=== PATIENT | female | born 1940 | race American Indian/Alaskan Native ===

== ENCOUNTER → 2017-02-04 | Outpatient (CLI) | payer OTHER | END | disposition home or self-care (01) | LOC: LAB.O 17:39 | PROVIDERS: ATTEND Nurse Practitioner Family | DX: E03.9 Hypothyroidism, unspecified (principal) ==

== ENCOUNTER 2017-06-11 22:00 | Emergency (ER) | payer OTHER, MEDICAID ==
[2017-06-11] MEDS ORDERED: HYDROcodone 5MG/APAP 325MG 1 EA TAB PO ONE ×2 (22:29→23:16)
--- NOTE | 2017-06-11 23:08 | RAD ---
EXAM: Clavicle,Right (accession [id number]), Shoulder,Right 2 or More Views (accession [id number]), Scapula,Right (accession [id number]), Humerus,Right (accession [id number]), Elbow,Right 2 Views (accession [id number]) CLINICAL INDICATION: 77-year-old female with pain status post fall. TECHNIQUE: Two views the RIGHT clavicle were obtained in AP projection. Two views the RIGHT humerus were obtained in AP and lateral projection. Two views of the RIGHT scapula were obtained in AP and lateral projection. Three views of the RIGHT shoulder were obtained in AP and lateral projection. Two views of the RIGHT elbow were obtained in AP and lateral projection. COMPARISON: None. FINDINGS: RIGHT shoulder: Mildly displaced and slightly impacted fracture of the RIGHT humeral head neck junction. The soft tissues appear to be within normal limits no additional fracture is identified. Patchy opacification of the RIGHT upper lobe may be secondary to scarring, consolidation, contusion for which follow-up evaluation with CT chest is recommended. RIGHT clavicle: The clavicle reveals mild degenerative change of the acromioclavicular junction otherwise no fracture or dislocation. RIGHT humerus: Incidentally noted axillary calcification may represent sequela of prior granulomatous disease. No or additional fracture or dislocation. RIGHT scapula: No fracture or dislocation. RIGHT elbow: No gross fracture or dislocation. Step-off is identified only on the AP view of the medial aspect of the distal humerus, may be secondary to patient positioning and osteophyte versus nondisplaced fracture. IMPRESSION: 1. Comminuted and slightly impacted fracture of the RIGHT humeral and neck junction. 2. Step-off is identified only on the AP view of the medial aspect of the distal humerus, may be secondary to patient positioning and osteophyte versus nondisplaced fracture. Please correlate with patient site of pain. Electronically signed by: Leticia Ndiaye MD 06/11/2017 11:07 PM CDT Workstation: [id number]
--- NOTE | 2017-06-11 23:08 | RAD ---
EXAM: Clavicle,Right (accession [id number]), Shoulder,Right 2 or More Views (accession [id number]), Scapula,Right (accession [id number]), Humerus,Right (accession [id number]), Elbow,Right 2 Views (accession [id number]) CLINICAL INDICATION: 77-year-old female with pain status post fall. TECHNIQUE: Two views the RIGHT clavicle were obtained in AP projection. Two views the RIGHT humerus were obtained in AP and lateral projection. Two views of the RIGHT scapula were obtained in AP and lateral projection. Three views of the RIGHT shoulder were obtained in AP and lateral projection. Two views of the RIGHT elbow were obtained in AP and lateral projection. COMPARISON: None. FINDINGS: RIGHT shoulder: Mildly displaced and slightly impacted fracture of the RIGHT humeral head neck junction. The soft tissues appear to be within normal limits no additional fracture is identified. Patchy opacification of the RIGHT upper lobe may be secondary to scarring, consolidation, contusion for which follow-up evaluation with CT chest is recommended. RIGHT clavicle: The clavicle reveals mild degenerative change of the acromioclavicular junction otherwise no fracture or dislocation. RIGHT humerus: Incidentally noted axillary calcification may represent sequela of prior granulomatous disease. No or additional fracture or dislocation. RIGHT scapula: No fracture or dislocation. RIGHT elbow: No gross fracture or dislocation. Step-off is identified only on the AP view of the medial aspect of the distal humerus, may be secondary to patient positioning and osteophyte versus nondisplaced fracture. IMPRESSION: 1. Comminuted and slightly impacted fracture of the RIGHT humeral and neck junction. 2. Step-off is identified only on the AP view of the medial aspect of the distal humerus, may be secondary to patient positioning and osteophyte versus nondisplaced fracture. Please correlate with patient site of pain. Electronically signed by: Leticia Ndiaye MD 06/11/2017 11:07 PM CDT Workstation: [id number]
--- NOTE | 2017-06-11 23:08 | RAD ---
EXAM: Clavicle,Right (accession [id number]), Shoulder,Right 2 or More Views (accession [id number]), Scapula,Right (accession [id number]), Humerus,Right (accession [id number]), Elbow,Right 2 Views (accession [id number]) CLINICAL INDICATION: 77-year-old female with pain status post fall. TECHNIQUE: Two views the RIGHT clavicle were obtained in AP projection. Two views the RIGHT humerus were obtained in AP and lateral projection. Two views of the RIGHT scapula were obtained in AP and lateral projection. Three views of the RIGHT shoulder were obtained in AP and lateral projection. Two views of the RIGHT elbow were obtained in AP and lateral projection. COMPARISON: None. FINDINGS: RIGHT shoulder: Mildly displaced and slightly impacted fracture of the RIGHT humeral head neck junction. The soft tissues appear to be within normal limits no additional fracture is identified. Patchy opacification of the RIGHT upper lobe may be secondary to scarring, consolidation, contusion for which follow-up evaluation with CT chest is recommended. RIGHT clavicle: The clavicle reveals mild degenerative change of the acromioclavicular junction otherwise no fracture or dislocation. RIGHT humerus: Incidentally noted axillary calcification may represent sequela of prior granulomatous disease. No or additional fracture or dislocation. RIGHT scapula: No fracture or dislocation. RIGHT elbow: No gross fracture or dislocation. Step-off is identified only on the AP view of the medial aspect of the distal humerus, may be secondary to patient positioning and osteophyte versus nondisplaced fracture. IMPRESSION: 1. Comminuted and slightly impacted fracture of the RIGHT humeral and neck junction. 2. Step-off is identified only on the AP view of the medial aspect of the distal humerus, may be secondary to patient positioning and osteophyte versus nondisplaced fracture. Please correlate with patient site of pain. Electronically signed by: Leticia Ndiaye MD 06/11/2017 11:07 PM CDT Workstation: [id number]
--- NOTE | 2017-06-11 23:08 | RAD ---
EXAM: Clavicle,Right (accession [id number]), Shoulder,Right 2 or More Views (accession [id number]), Scapula,Right (accession [id number]), Humerus,Right (accession [id number]), Elbow,Right 2 Views (accession [id number]) CLINICAL INDICATION: 77-year-old female with pain status post fall. TECHNIQUE: Two views the RIGHT clavicle were obtained in AP projection. Two views the RIGHT humerus were obtained in AP and lateral projection. Two views of the RIGHT scapula were obtained in AP and lateral projection. Three views of the RIGHT shoulder were obtained in AP and lateral projection. Two views of the RIGHT elbow were obtained in AP and lateral projection. COMPARISON: None. FINDINGS: RIGHT shoulder: Mildly displaced and slightly impacted fracture of the RIGHT humeral head neck junction. The soft tissues appear to be within normal limits no additional fracture is identified. Patchy opacification of the RIGHT upper lobe may be secondary to scarring, consolidation, contusion for which follow-up evaluation with CT chest is recommended. RIGHT clavicle: The clavicle reveals mild degenerative change of the acromioclavicular junction otherwise no fracture or dislocation. RIGHT humerus: Incidentally noted axillary calcification may represent sequela of prior granulomatous disease. No or additional fracture or dislocation. RIGHT scapula: No fracture or dislocation. RIGHT elbow: No gross fracture or dislocation. Step-off is identified only on the AP view of the medial aspect of the distal humerus, may be secondary to patient positioning and osteophyte versus nondisplaced fracture. IMPRESSION: 1. Comminuted and slightly impacted fracture of the RIGHT humeral and neck junction. 2. Step-off is identified only on the AP view of the medial aspect of the distal humerus, may be secondary to patient positioning and osteophyte versus nondisplaced fracture. Please correlate with patient site of pain. Electronically signed by: Leticia Ndiaye MD 06/11/2017 11:07 PM CDT Workstation: [id number]
--- NOTE | 2017-06-11 23:08 | RAD ---
EXAM: Clavicle,Right (accession [id number]), Shoulder,Right 2 or More Views (accession [id number]), Scapula,Right (accession [id number]), Humerus,Right (accession [id number]), Elbow,Right 2 Views (accession [id number]) CLINICAL INDICATION: 77-year-old female with pain status post fall. TECHNIQUE: Two views the RIGHT clavicle were obtained in AP projection. Two views the RIGHT humerus were obtained in AP and lateral projection. Two views of the RIGHT scapula were obtained in AP and lateral projection. Three views of the RIGHT shoulder were obtained in AP and lateral projection. Two views of the RIGHT elbow were obtained in AP and lateral projection. COMPARISON: None. FINDINGS: RIGHT shoulder: Mildly displaced and slightly impacted fracture of the RIGHT humeral head neck junction. The soft tissues appear to be within normal limits no additional fracture is identified. Patchy opacification of the RIGHT upper lobe may be secondary to scarring, consolidation, contusion for which follow-up evaluation with CT chest is recommended. RIGHT clavicle: The clavicle reveals mild degenerative change of the acromioclavicular junction otherwise no fracture or dislocation. RIGHT humerus: Incidentally noted axillary calcification may represent sequela of prior granulomatous disease. No or additional fracture or dislocation. RIGHT scapula: No fracture or dislocation. RIGHT elbow: No gross fracture or dislocation. Step-off is identified only on the AP view of the medial aspect of the distal humerus, may be secondary to patient positioning and osteophyte versus nondisplaced fracture. IMPRESSION: 1. Comminuted and slightly impacted fracture of the RIGHT humeral and neck junction. 2. Step-off is identified only on the AP view of the medial aspect of the distal humerus, may be secondary to patient positioning and osteophyte versus nondisplaced fracture. Please correlate with patient site of pain. Electronically signed by: Leticia Ndiaye MD 06/11/2017 11:07 PM CDT Workstation: [id number]
--- NOTE | 2017-06-11 23:12 | ED.PDOC ---
History of Present Illness - General Chief Complaint: Upper Extremity Injury Stated Complaint: Right arm injury Time Seen by Provider: 06/11/17 22:02 Source: patient Exam Limitations: no limitations - History of Present Illness Initial Comments: the patient is a 77-year-old female that was getting in her car when she fell backwardsand tried to catch herself with her right arm. She felt a pop up towards her shoulder. She is having severe pain surrounding the shoulder and extending down her arm. Sensation is preserved and capillary refill is within normal limits. Radial pulses strong. She has tenderness to palpation over the entirety of the shoulder. I see no definite deformity. There is some tenderness over the right elbow as well. No other injuries. No lacerations. Timing/Duration: momentarily Severity: moderate Improving Factors: immobilization Worsening Factors: movement Associated Symptoms: denies symptoms Allergies/Adverse Reactions: Allergies Penicillins Allergy (Verified 07/11/15 22:30) Flu Virus Vaccine Adverse Reaction (Verified 06/11/17 22:15) Home Medications: Ambulatory Orders Acetaminophen W/ Codeine [Tylenol W/ CODEINE #3] 1 - 2 ea PO Q4H PRN #20 Ciprofloxacin [Cipro] 500 mg PO BID #20 tab 07/11/15 Sulfa/Trimeth 800/160 (Ds) Tab [Bactrim DS Tab] 1 ea PO BID #20 tab 07/11/15 Xsxjtlbhmgsuz-Luwj-Zkogdhwhkx [Fioricet] 1 ea PO Q8H PRN #60 tab 06/11/17 Review of Systems - Review of Systems Constitutional: States: no symptoms reported EENTM: States: no symptoms reported Respiratory: States: no symptoms reported Cardiology: States: no symptoms reported Gastrointestinal/Abdominal: States: no symptoms reported Genitourinary: States: no symptoms reported Musculoskeletal: States: see HPI Skin: States: no symptoms reported Neurological: States: no symptoms reported All other Systems: No Change from Baseline Past Medical History (General) - Patient Medical History Hx Seizures: No Hx Stroke: No Hx Dementia: No Hx Asthma: No Hx of COPD: Yes Hx Cardiac Disorders: No Hx Congestive Heart Failure: No Hx Pacemaker: No Hx Hypertension: No Hx Thyroid Disease: Yes Hx Diabetes: No Hx Gastroesophageal Reflux: Yes Hx Renal Disease: No Hx Cancer: No Hx of HIV: No Hx Hepatitis C: No Hx MRSA: No Surgical History: tonsillectomy, Hysterectomy - Vaccination History Hx Tetanus, Diphtheria Vaccination: Yes Hx Influenza Vaccination: No Hx Pneumococcal Vaccination: Yes Immunizations Up to Date: Yes - Social History Hx Tobacco Use: No Hx Alcohol Use: No - Activities of Daily Living Hospice Agency (if applicable):: None - Female History Patient is a Female of Child Bearing Age (10 -59 yrs old): No Patient : No Family Medical History - Family History Mother Family History: No Known Living Status: Physical Exam - Physical Exam General Appearance: Alert Eye Exam: bilateral normal Ears, Nose, Throat: normal ENT inspection, normal pharynx Neck: full range of motion, supple Respiratory: lungs clear, normal breath sounds, no respiratory distress, no accessory muscle use Cardiovascular/Chest: normal peripheral pulses, regular rate, rhythm, no edema Peripheral Pulses: radial,right: 2+, radial,left: 2+ Rectal Exam: deferred Back Exam: other - ight scapular tenderness to palpation but no deformity Extremity: no pedal edema, normal capillary refill, other - active and passive range of motion of the right upper extremity are limited due to pain. No obvious gross deformity. Neurologic: no motor/sensory deficits, alert, normal mood/affect, oriented x 3 Skin Exam: normal color Comments: Vital Signs - 24 hr 06/11/17 06/11/17 22:14 22:15 Temperature 98 F Pulse Rate [ 68 68 Left radial] Respiratory 18 18 Rate Blood Pressure 159/76 [Left Arm] O2 Sat by Pulse 94 L Oximetry Progress - Progress Progress: 06/11/17 23:12 the patient is a 77-year-old female sustaining a proximal right humerus fracture after a fall that was accidental. The patient is given hydrocodone tonight. She is given a prescription for Fioricet. She is being placed in a shoulder immobilizer. I recommend that she follow-up with orthopedics later this coming week for reevaluation, and likely re-x-ray of the elbow to make sure there is not a small nondisplaced fracture present. She appears to be neurovascularly intact at this time. ER warnings were given. She continues ibuprofen or Aleve additionally as needed for pain control. 06/11/17 23:18 - Results/Orders Results/Orders: x-rays of the right scapula, shoulder, humerus, elbow and clavicle show a minimally displaced fracture of the right proximal humerus and a questionable nondisplaced fracture of the distal humerus at the elbow. Departure - Departure Clinical Impression: Proximal humeral fracture Qualifiers: Encounter type: initial encounter Fracture type: closed Fracture morphology: unspecified fracture morphology Laterality: right Qualified Code(s): S42.201A - Unspecified fracture of upper end of right humerus, initial encounter for closed fracture Disposition: Discharge to Home or Self Care Condition: Fair Departure Forms: ED Discharge - Pt. Copy, Patient Portal Self Enrollment Instructions: DI for Arm Pain Diet: regular diet Activity: no pushing/pulling with affected limb Referrals: SONAL GOLD IV ROLL PANNER [Primary Care Provider] - 1-2 Weeks Prescriptions: Scpkdprxvsaxs-Qlzk-Dpampynynl [Fioricet] 1 ea PO Q8H PRN #60 tab PRN Reason: Pain Home Medications: Ambulatory Orders Acetaminophen W/ Codeine [Tylenol W/ CODEINE #3] 1 - 2 ea PO Q4H PRN #20 Ciprofloxacin [Cipro] 500 mg PO BID #20 tab 07/11/15 Sulfa/Trimeth 800/160 (Ds) Tab [Bactrim DS Tab] 1 ea PO BID #20 tab 07/11/15 Ujsiuotlvqpqb-Kfsn-Lknpyyjxfl [Fioricet] 1 ea PO Q8H PRN #60 tab 06/11/17 Additional Instructions: the patient is a 77-year-old female sustaining a proximal right humerus fracture after a fall that was accidental. The patient is given hydrocodone tonight. She is given a prescription for Fioricet. She is being placed in a shoulder immobilizer. I recommend that she follow-up with orthopedics later this coming week for reevaluation, and likely re-x-ray of the elbow to make sure there is not a small nondisplaced fracture present. She appears to be neurovascularly intact at this time. ER warnings were given. She continues ibuprofen or Aleve additionally as needed for pain control.
[2017-06-11 23:14] VITALS: O2SAT 92
[2017-06-11 23:29] VITALS: BP 138/72; TEMP 98.2
== END 2017-06-11 23:30 | disposition home or self-care (01) ==
LOC: ER 22:00
DX: S42.201A Unspecified fracture of upper end of right humerus, initial encounter for closed fracture (principal); K21.9 Gastro-esophageal reflux disease without esophagitis; E07.9 Disorder of thyroid, unspecified; J44.9 Chronic obstructive pulmonary disease, unspecified; Z88.0 Allergy status to penicillin; Z88.7 Allergy status to serum and vaccine; Z79.899 Other long term (current) drug therapy; W19.XXXA Unspecified fall, initial encounter; Y92.9 Unspecified place or not applicable

== ENCOUNTER → 2017-07-01 | Outpatient (CLI) | payer OTHER, MEDICAID ==
--- NOTE | 2017-07-03 16:43 | RAD ---
Examination: XR SHOULDER 2 OR MORE VIEWS dated 07/01/2017 8:32 AM CDT History: PAIN IN RIGHT SHOULDER Comparison: 06/11/2017 Technique: Two views of the right proximal humerus FINDINGS AND IMPRESSION: Mildly displaced fracture of the surgical neck, right proximal humerus in unchanged alignment. Fracture line remains visible without significant callus formation. Electronically signed by: Crow Martins MD 07/03/2017 4:42 PM CDT
--- NOTE | 2017-07-03 16:44 | RAD ---
Examination: XR HUMERUS dated 07/01/2017 8:32 AM CDT History: PAIN IN RIGHT ARM Comparison: 06/11/2017 Technique: Two views of the right humerus FINDINGS AND IMPRESSION: Mildly displaced surgical neck fracture of the right proximal humerus in unchanged alignment. Fracture line remains visible without significant callus formation. Electronically signed by: Crow Martins MD 07/03/2017 4:43 PM CDT
== END | disposition home or self-care (01) ==
LOC: RAD 08:32
PROVIDERS: ATTEND Orthopaedic Surgery
DX: M25.511 Pain in right shoulder (principal); M79.601 Pain in right arm

== ENCOUNTER → 2017-07-12 | Outpatient (CLI) | payer OTHER, MEDICAID ==
--- NOTE | 2017-07-12 11:47 | RAD ---
EXAM DESCRIPTION: Right shoulder, 3 radiographs CLINICAL HISTORY: CLOSED FX OF SURGICAL NECK OF HUMERUS FINDINGS/ IMPRESSION: COMPARISON: 07/01/2017 Fracture of the right proximal humerus at the surgical neck. Mild surrounding callus. No solid osseous fusion. Similar degree of impaction No fracture of the clavicle or scapula Electronically signed by: Asa St MD 07/12/2017 11:45 AM CDT
--- NOTE | 2017-07-12 11:47 | RAD ---
EXAM DESCRIPTION: Humerus,Right CLINICAL HISTORY: CLOSED FX OF SURGICAL NECK OF HUMERUS COMPARISON: July 01, 2017 IMPRESSION: 2 views of the right humerus again demonstrate a mildly displaced, impacted right shoulder involving the surgical neck of the proximal right humerus. There is more indistinctness of the fracture margins and increasing periosteal reaction consistent with partial interval healing. Fracture line persists consistent with incomplete fusion at this time. Soft tissue calcification lateral to the right chest are seen. Today's exam shows more prominent interstitial infiltrate and masslike density in the right lung apex concerning for pneumonia versus neoplastic process. Further evaluation with CT of the chest is recommended as described on prior imaging reports. Electronically signed by: Yunior Carolina MD 07/12/2017 11:45 AM CDT
--- NOTE | 2017-07-12 14:05 | RAD ---
Right elbow three views INDICATION: Elbow pain IMPRESSION: Bones are osteopenic. There is an enthesophyte at the medial epicondyle. This may relate to remote trauma or chronic medial epicondylitis. No acute fracture or dislocation. No large effusion or hemarthrosis noted. Electronically signed by: Tera Astorga MD 07/12/2017 2:04 PM CDT
== END | disposition home or self-care (01) ==
LOC: RAD 08:05
PROVIDERS: ATTEND Orthopaedic Surgery
DX: S42.291D Other displaced fracture of upper end of right humerus, subsequent encounter for fracture with routine healing (principal); M25.521 Pain in right elbow; X58.XXXA Exposure to other specified factors, initial encounter

== ENCOUNTER → 2017-07-26 | Outpatient (CLI) | payer OTHER, MEDICAID ==
--- NOTE | 2017-07-26 16:08 | RAD ---
EXAM DESCRIPTION: Shoulder,Right 2 or More Views CLINICAL HISTORY: CLOSED FRACTURE OF HUMERUS COMPARISON: July 12, 2017 IMPRESSION: 3 views of the right shoulder again demonstrate fracture of the right proximal humerus at the surgical neck. Mild surrounding callus not significantly changed from previous. No solid osseous fusion. Similar degree of impaction. No glenohumeral joint dislocation. No fracture of the clavicle or scapula. The osseous structures are diffusely osteopenic. Chronic changes to the right chest with apical pleural thickening again seen. Electronically signed by: Yunior Carolina MD 07/26/2017 4:07 PM CDT
== END | disposition home or self-care (01) ==
LOC: RAD 08:32
PROVIDERS: ATTEND Orthopaedic Surgery
DX: S42.301A Unspecified fracture of shaft of humerus, right arm, initial encounter for closed fracture (principal)

== ENCOUNTER → 2017-08-09 | Outpatient (CLI) | payer OTHER, MEDICAID ==
--- NOTE | 2017-08-09 14:44 | RAD ---
EXAM DESCRIPTION: Shoulder,Right 2 or More Views CLINICAL HISTORY: CLOSED FX OF HUMERUS COMPARISON: July 26, 2017, July 12, 2017, July 01, 2017 TECHNIQUE: Two views of the right shoulder. FINDINGS: An impacted fracture of the right proximal humerus at the head neck junction is present with persistent lucency and some progressive maturation of callus formation at the margins of the fracture line. Or significant progression of callus in comparison to more remote studies is evident. The alignment is stable. Osteopenia with intact clavicle and scapula is noted. There is chronic inflammatory changes and/or pleural thickening involving the right pulmonary apex and upper outer chest wall. This is unchanged from prior study. IMPRESSION: 1. Slow progressive maturation of callus formation at the proximal humeral fracture site with stable alignment. 2. Chronic pleural thickening and inflammatory changes in the right upper lung field, little changed. Electronically signed by: Asa Saha MD 08/09/2017 2:42 PM [facility]
== END | disposition home or self-care (01) ==
LOC: RAD 07:56
PROVIDERS: ATTEND Orthopaedic Surgery
DX: S42.301A Unspecified fracture of shaft of humerus, right arm, initial encounter for closed fracture (principal); X58.XXXA Exposure to other specified factors, initial encounter

== ENCOUNTER → 2017-08-23 | Outpatient (CLI) | payer OTHER, MEDICAID ==
--- NOTE | 2017-08-23 09:01 | RAD ---
EXAM DESCRIPTION: Shoulder,Right 2 or More Views CLINICAL HISTORY: HUMERUS FX COMPARISON: 09 August 2017 TECHNIQUE: 3 views right FINDINGS: An impacted fracture of the proximal radius is observed. Callus formation is observed at the fracture site. Alignment of the fracture is unchanged from the prior exam. Osteopenia is observed in the shoulder. Calcifications are observed along the right lateral chest wall. This remains unchanged the prior exam. No new fracturing is detected. IMPRESSION: A healing fracture the proximal right humerus is again noted. Electronically signed by: Franklyn Mckenzie MD 08/23/2017 9:00 AM [facility]
== END | disposition home or self-care (01) ==
LOC: RAD 08:02
PROVIDERS: ATTEND Orthopaedic Surgery
DX: S42.301A Unspecified fracture of shaft of humerus, right arm, initial encounter for closed fracture (principal)

== ENCOUNTER → 2017-09-06 | Outpatient (CLI) | payer OTHER, MEDICAID ==
--- NOTE | 2017-09-07 07:43 | RAD ---
EXAM DESCRIPTION: Shoulder,Right 2 or More Views CLINICAL HISTORY: 77 years Female, CLOSED FX OF HUMERUS COMPARISON: August 23, 2017 FINDINGS: 3 views of the right shoulder show an impacted, partially united and nondisplaced right humeral neck fracture, not significantly changed from August 23. The bones appear demineralized. No acute fracture or malalignment is identified. There is some soft tissue calcification in the right axilla, stable and probably representing one or more calcified lymph nodes. IMPRESSION: Impacted, nondisplaced and partially nonunited right humeral neck fracture, unchanged from August 23, 2017. No new abnormality. Generalized bony demineralization. Electronically signed by: Collin Frank MD 09/07/2017 7:42 AM [facility]
== END ==
LOC: RAD 08:00
PROVIDERS: ATTEND Orthopaedic Surgery
DX: S42.301D Unspecified fracture of shaft of humerus, right arm, subsequent encounter for fracture with routine healing (principal)

== ENCOUNTER 2018-02-26 20:38 | Inpatient (IN) | payer MEDICAID, OTHER ==
[2018-02-26] MEDS ORDERED: IPRATROPIUM/ALBUTEROL 3 ML VIAL NEB ONE (20:53)
--- NOTE | 2018-02-26 21:13 | ED.PDOC ---
History of Present Illness - General Chief Complaint: Chest Pain/OK Stated Complaint: Fall, chest and back pain Time Seen by Provider: 02/26/18 21:11 Source: patient Exam Limitations: no limitations - History of Present Illness Initial Comments: the patient is a 78-year-old female brought in by EMS secondary to recurrent falls. She has fallen 3 times in his many days. She fell backwards today and is having some low back pain diffusely. No incontinence. She is moving her extremities well. She does however have a low-grade fever and is mildly hypoxic at rest. She does have a history of COPD but has not had to do any breathing treatments or wearing the oxygen for several years. After the first fall she has had some chest pain with movement. No real chest pain at rest or aerobic exertion. She has not passed out. She reports that her legs didn't give way on her the first time. No palpitations. She has had a productive cough. Timing/Duration: unsure Severity: moderate Improving Factors: nothing Worsening Factors: nothing Associated Symptoms: denies symptoms Allergies/Adverse Reactions: Allergies Penicillins Allergy (Verified 02/26/18 21:01) Flu Virus Vaccine Adverse Reaction (Verified 02/26/18 21:01) Home Medications: Ambulatory Orders Acetaminophen W/ Codeine [Tylenol W/ CODEINE #3] 1 - 2 ea PO Q4H PRN #20 Msxodjkuzelbr-Pczb-Peyoydvswi [Fioricet] 1 ea PO Q8H PRN #60 tab 06/11/17 Review of Systems - Review of Systems Constitutional: States: fever, malaise, weakness EENTM: States: no symptoms reported Respiratory: States: cough, short of breath Cardiology: States: chest pain - hest wall pain Gastrointestinal/Abdominal: States: no symptoms reported Genitourinary: States: no symptoms reported Musculoskeletal: States: no symptoms reported Skin: States: no symptoms reported Neurological: States: no symptoms reported Endocrine: States: no symptoms reported All other Systems: No Change from Baseline Past Medical History (General) - Patient Medical History Hx Seizures: No Hx Stroke: No Hx Dementia: No Hx Asthma: No Hx of COPD: Yes Hx Cardiac Disorders: No Hx Congestive Heart Failure: No Hx Pacemaker: No Hx Hypertension: No Hx Thyroid Disease: Yes Hx Diabetes: No Hx Gastroesophageal Reflux: Yes Hx Renal Disease: No Hx Cancer: No Hx of HIV: No Hx Hepatitis C: No Hx MRSA: No - Vaccination History Hx Tetanus, Diphtheria Vaccination: Yes Hx Influenza Vaccination: No Hx Pneumococcal Vaccination: Yes - Social History Hx Tobacco Use: No Hx Alcohol Use: No - Female History Patient : No Family Medical History - Family History Mother Family History: No Known Living Status: Physical Exam - Physical Exam General Appearance: Alert, Frail Eye Exam: bilateral normal Ears, Nose, Throat: hearing grossly normal, normal ENT inspection, normal pharynx Neck: full range of motion, supple Respiratory: no respiratory distress, accessory muscle use, rhonchi, wheezing, other - hest wall anteriorly is uncomfortable to palpation. Cardiovascular/Chest: normal peripheral pulses, no edema, other - orderline tachycardia. Peripheral Pulses: radial,right: 2+, radial,left: 2+, dorsalis pedis,right: 2+, dorsalis pedis,left: 2+ Gastrointestinal/Abdominal: non tender, soft Rectal Exam: deferred Back Exam: other - he patient does have diffuse discomfort palpation over her low back. No definite step-offs. No bruising as of yet. 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 It does appear that she has been getting hypoxic likely from a scattered pneumonia, primarily focused in the right upper lobe. She is no doubt having a COPD exacerbation given her pulmonary exam. She does require oxygen. Blood culture has been performed. Rocephin and azithromycin have been started. She has additionally received a small dose of IV Solu-Medrol. She is also received a dose of hydrocodone for the low back pain from the fall. X-ray of the lumbar spine shows no definitive evidence of any acute pathology though she does have significant chronic pathology in that area. The patient does have a mildly elevated bilirubin which is likely a chronic finding. She also has mild hypokalemia and has received a dose of potassium. She is mildly dehydrated and is receiving a 500 cc normal saline bolus. She may yet require some physical therapy before she is fully able to resume her ADLs as she was barely able to perform them before these falls. She also may require longer term oxygen therapy and scheduled nebulizer treatments when she goes home. - Results/Orders Results/Orders: Laboratory Tests 02/26/18 02/26/18 02/26/18 20:53 20:53 20:53 WBC 12.4 H RBC 3.93 L Hgb 12.1 Hct 35.8 L MCV 91.0 MCH 30.7 MCHC 33.7 RDW 13.6 Plt Count 234 MPV 8.0 Absolute Neuts (auto) 11.40 H Absolute Lymphs (auto) 0.30 L Absolute Monos (auto) 0.70 Absolute Eos (auto) 0.00 Absolute Basos (auto) 0.00 Neutrophils % 91.6 H Lymphocytes % 2.3 L Monocytes % 5.9 Eosinophils % 0.1 L Basophils % 0.1 PT 14.9 H INR 1.290 PTT (SP) 26.5 Sodium 133 L Potassium 3.0 L Chloride 97 L Carbon Dioxide 25 Anion Gap 14.0 BUN 19 H Creatinine 0.59 L BUN/Creatinine Ratio 32.2 H Random Glucose 156 H Serum Osmolality 271.8 L Lactic Acid Calcium 8.2 L Total Bilirubin 2.3 H* AST 19 ALT 15 Alkaline Phosphatase 73 Creatine Kinase 29 CK-MB (CK-2) 2.1 CK-MB (CK-2) % Not Reportable Troponin I 0.03 B-Natriuretic Peptide 219.0 H* Serum Total Protein 6.3 L Albumin 2.4 L Globulin 3.9 H Albumin/Globulin Ratio 0.6 L 02/26/18 20:53 WBC RBC Hgb Hct MCV MCH MCHC RDW Plt Count MPV Absolute Neuts (auto) Absolute Lymphs (auto) Absolute Monos (auto) Absolute Eos (auto) Absolute Basos (auto) Neutrophils % Lymphocytes % Monocytes % Eosinophils % Basophils % PT INR PTT (SP) Sodium Potassium Chloride Carbon Dioxide Anion Gap BUN Creatinine BUN/Creatinine Ratio Random Glucose Serum Osmolality Lactic Acid 1.4 Calcium Total Bilirubin AST ALT Alkaline Phosphatase Creatine Kinase CK-MB (CK-2) CK-MB (CK-2) % Troponin I B-Natriuretic Peptide Serum Total Protein Albumin Globulin Albumin/Globulin Ratio EKG shows mild sinus tachycardia at 107 bpm.normal axis. No acute ST segment changes worrisome for ischemia. Normal corrected QT interval. Chest x-ray shows scattered pulmonary infiltrates with the largest being in the right upper lobe. Departure - Departure Clinical Impression: Hypokalemia, Hypoxia, COPD with acute exacerbation Pneumonia Qualifiers: Pneumonia type: due to unspecified organism Laterality: bilateral Lung location : upper lobe of lung Qualified Code(s): J18.9 - Pneumonia, unspecified organism Fall at home Qualifiers: Encounter type: initial encounter Qualified Code(s): W19.XXXA - Unspecified fall, initial encounter; Y92.099 - Unspecified place in other non-institutional residence as the place of occurrence of the external cause Disposition: Admit Patient Condition: Serious Referrals: SONAL GOLD IV, [facility] [Primary Care Provider] - 1-2 Weeks Home Medications: Ambulatory Orders Acetaminophen W/ Codeine [Tylenol W/ CODEINE #3] 1 - 2 ea PO Q4H PRN #20 Tporxlgbrtfrc-Wbyq-Flhdtvvbav [Fioricet] 1 ea PO Q8H PRN #60 tab 06/11/17 Decision To Admit - Decistion To Admit Decision to Admit Reason: Medical Nature Decision to Admit Date: 02/26/18 Decision to Admit Time: 22:36
--- NOTE | 2018-02-26 21:43 | RAD ---
EXAM DESCRIPTION: Chest,1 View CLINICAL HISTORY: sob, recurrent falls, cp after fall COMPARISON: None. FINDINGS: Cardiac silhouette is within normal limits. There is consolidation in the right upper lung, right lung base and left lung base and to a lesser extent left upper lung. IMPRESSION: Scattered consolidations. Electronically signed by: Josr Taylor 02/26/2018 9:41 PM CDT
--- NOTE | 2018-02-26 21:50 | RAD ---
EXAM DESCRIPTION: Lumbar Spine 3 Views CLINICAL HISTORY: pain after fall COMPARISON: None FINDINGS: 3 view(s) submitted. There are degenerative changes. There is grade 1 anterolisthesis of L4 on L5. Moderate L5-S1 disc height loss. There is slight loss of height of T12, acuity indeterminate. Moderate dilatation of loops of gas-filled bowel are present. No definite transition point is seen. No fracture or dislocation is identified. Bone marrow attenuation is unremarkable. No radiopaque foreign body is identified. IMPRESSION: No acute fracture or dislocation. Electronically signed by: Josr Taylor 02/26/2018 9:48 PM CDT
[2018-02-26] MEDS ORDERED: POTASSIUM CHLORIDE ELIXIR 20 MEQ/15 ML UD PO ONE (21:56)
[2018-02-26] MEDS ORDERED: cefTRIAXone SODIUM 1 GM in SODIUM CHL 0.9% 50ML MIN-BAG+ 50 ML IVPB ONE (21:58)
[2018-02-26] MEDS ORDERED: AZITHROMYCIN IV 500 MG in SODIUM CHLORIDE 0.9% 250ML 250 ML IVPB ONE (21:58)
[2018-02-26] MEDS ORDERED: methylPREDNISolone SODIUM SUC 125 MG/2 ML VIAL IV ONE (21:59)
[2018-02-26] MEDS ORDERED: HYDROcodone 5MG/APAP 325MG 1 EA TAB PO ONE (21:59)
[2018-02-26] MEDS ORDERED: SODIUM CHL 0.9% 50ML MIN-BAG+ 50 ML IVPB ONE (22:15)
[2018-02-26] MEDS ORDERED: cefTRIAXone SODIUM 1 GM VIAL ONE (22:15)
[2018-02-26] MEDS ORDERED: SODIUM CHLORIDE 0.9% 1000ML 500 ML IVS ONE (22:28)
[2018-02-26] MEDS ORDERED: SODIUM CHLORIDE 0.9% 250ML 250 ML ONE (23:18)
[2018-02-26] MEDS ORDERED: AZITHROMYCIN IV 500 MG VIAL IVPB ONE (23:18)
--- NOTE | 2018-02-27 00:54 | HP ---
SUPERVISING PHYSICIAN: Asa Santoyo MD CHIEF COMPLAINT: Fall with chest and back pain. HISTORY OF PRESENT ILLNESS: Ms. Pinon is an 78 year-old female patient who presented to the Emergency Room via EMS after she had multiple falls throughout the day. She said had fallen at least three times throughout the day. She had fallen backwards and was having some diffuse lower back pain. On presentation to the Emergency Department, she was moving all extremities but was showing a low grade fever and was mildly hypoxic at rest with Sv02 showing initially in the high 80s. She has a longstanding history of chronic obstructive pulmonary disease but has not had any significant treatment over the years and has not been utilizing any breathing treatments or wearing oxygen. She notes that after the first fall this morning she had some chest pain but no chest pain at rest or activities and the pain was reproducible. She notes that she did not actually pass out but her legs just simply gave way on her. She has also noted over the last several days she has developed a productive cough. Initially, her vital signs showed she was febrile with a temperature of 100.5. Her laboratory studies indicated she had a leukocytosis with a left shift and her chemistries showed she was low on sodium and potassium with elevated BUN at 19 but normal lactic acid at 1.4. Her liver enzymes were all normal except for her total bilirubin which was 2.3. Cardiac enzymes showed a troponin 0.03 with a BNP of 219. An X- ray of her chest was completed and per radiology interpretation of single-view chest showed scattered consolidation in the right upper lung and lower lung base null with some noted in the left lung base. Lumbar spine x-ray was also completed given that she was having some back pain which appears to be chronic and it was noted per radiology interpretation, no acute fractures or dislocation. Given that she was presenting with a fever and consolidations noted on x-ray, she was started on treatment for pneumonia, community acquired, in the Emergency Room . Blood cultures were completed prior to antibiotic administrations which included Rocephin and azithromycin. She is now going to be admitted for further evaluation and treatment of community acquired pneumonia with an exacerbation of chronic obstructive pulmonary disease. PAST MEDICAL HISTORY: 1. Chronic obstructive pulmonary disease but no currently under any treatment. 2. Hypothyroidism not on any supplementation. 3. Gastroesophageal reflux disease. 4. Fracture of her right humerus in May 2017. PAST SURGICAL HISTORY: 1. Hysterectomy. 2. Bilateral breast surgery for fibroid tumors. 3. Tonsillectomy and adenoidectomy. 4. Appendectomy. 5. Cholecystectomy. CURRENT MEDICATIONS: 1. Fioricet 1 tablet every 8 hours as needed. 2. Tylenol No. 3, one or two every 4 hours as needed. ALLERGIES: COCONUT, PENICILLIN, FLU VIRUS VACCINE. FAMILY HISTORY: Significant for emphysema cardiovascular disease and hypertension. SOCIAL HISTORY: The patient has recently moved to [place] within the last four years from [place], [place]. 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 She did have a long history of smoking, well over 45 years, but quit in 1999 and she has never drank alcohol. She is and lives with a roommate. REVIEW OF SYSTEMS: CONSTITUTIONAL: Noted fever, malaise, general weakness. HEENT: No reported nasal congestion, earache, sore throat, headaches. CARDIOVASCULAR: Chest pain with palpable chest wall pain after fall. No palpitations or syncopal episodes. GASTROINTESTINAL: No abdominal pain, constipation diarrhea, nausea or vomiting. GENITOURINARY: Denies any dysuria, hematuria, polyuria or other urinary symptoms. NEUROLOGICAL: Denies ataxia, seizures or other neurological deficits. PHYSICAL EXAMINATION: VITAL SIGNS: Temperature in the Emergency Department initially was 100.5. Heart rate 107 with blood pressure 121/62, respirations 24, saturation 92% on nasal cannula at 3 liters at rest. Admission weight was 52.0 kg. GENERAL: On admission to the medical/surgical floor, the patient showed to be in no acute distress and resting comfortably. She was alert. She does appear frail and chronically ill. HEENT: Tympanic membranes clear bilaterally. Oropharynx pink and moist without any lesions. NECK: Supple, non-tender, full range of motion. CHEST: There is notable rhonchi heard, more so to the bases on the right. No wheezing or rubs. She does have some anterior chest wall discomfort upon palpitations but no obvious bruising or a flail chest and chest wall has equal rise and fall. CARDIOVASCULAR: Heart tones are regular rate and rhythm with tachycardiac rate noted on the monitor. No discernible murmurs, rubs, or gallops. ABDOMEN: Soft, non-tender with positive bowel sounds. BACK: She does have some notable tenderness diffusely through the lower back area. No obvious trauma, no obvious step-offs and no spinal tenderness. EXTREMITIES: No cyanosis, clubbing, or edema and she moves all extremities ad vida. NEUROLOGIC: Cranial nerves II through XII are grossly intact. Facial features were symmetrical. Extraocular movement were within normal limits. There was no notable nystagmus and she was alert and oriented x 3. LABORATORY: CBC on admission showed a white count of 12,400 with hemoglobin 12.1 and hematocrit 35.8. Platelet count 234,000, differential did show a left shift. Coagulation studies just a slightly elevated PT of 14.9. INR was 1.2, PTT normal. Chemistries: She had a low sodium of 133 as well as a potassium of 3.0. Carbon dioxide was 25. BUN 19, creatinine 0.59. Glucose 156, lactic acid 1.4, calcium 8.2, bilirubin was elevated at 2.3 but AST and ALT and alkaline phosphatase were normal. CPK was normal at 29 with troponin of 0.03. BNP was slightly elevated at 219. Urinalysis showed a trace of intact blood with a small amount of bilirubin greater than 8 on urobilinogen. Microscopic exam revealed 1 to 3 epithelials, 1 to 3 WBCs but 20 to 30 epithelials with 2+ bacteria, a small amount of mucus and a trace amount of amorphous sediment material. MICROBIOLOGY: Blood cultures are pending. Sputum culture pending. RADIOLOGY: Initial in the Emergency Department showed a single view chest and per radiology interpretation showed consolidation in the right upper lung, right lung base and left lung base and a lesser extent in the left upper lung. She also had a lumbar spine x-ray and per radiology interpretation there was no acute fracture or dislocation. ASSESSMENT: 1. Acute exacerbation of chronic obstructive pulmonary disease with community acquired pneumonia, multifocal. Findings on radiographic studies with the patient showing some mild hypoxemia on room air. 2. Frequent falls with generalized weakness, likely secondary to #1. 3. History of hypothyroidism. 4. History of gastroesophageal reflux disease. 5. Electrolytes imbalance to include mild hyponatremia and hypokalemia. 6. Elevated bilirubin, uncertain etiology, likely secondary to acute illness and some mild dehydration. PLAN: The patient is going to be admitted to the medical/surgical floor for further treatment of community acquired pneumonia and exacerbation of patient's chronic obstructive pulmonary disease. Blood cultures were completed in the Emergency Room and she was started on azithromycin and Rocephin. Will continue with current medication regimen and start her on some IV fluids with normal saline and 40 of potassium at 80 an hour. She will have aggressive pulmonary hygiene along with q.i.d. Duoneb treatments and chest percussive therapy. We will await culture results of sputum and blood cultures and monitor and treat appropriate based off sensitivities available. We will anticipate length of stay to be at least 2 to 3 days. She will be on DVT prophylaxis per protocol and will plan to repeat labs and chest x-ray in the morning. Until clinically stable and improved, we will continue to monitor and treat appropriately until discharge. #[id number] [facility]
[2018-02-27] MEDS ORDERED: HYDROcodone 5MG/APAP 325MG 1 EA TAB PO PRN (01:17)
[2018-02-27] MEDS ORDERED: ACETAMINOPHEN 325 MG TAB PO PRN (01:17)
[2018-02-27] MEDS ORDERED: ALBUTEROL SULFATE 2.5 MG/3 ML VIAL NEB PRN (01:17)
[2018-02-27] MEDS ORDERED: SODIUM CHLORIDE 0.9% (FLUSH) 10 ML SYG IV PRN (01:17)
--- NOTE | 2018-02-27 01:24 | PCM.CORE ---
Physician DVT/VTE - Nurse DVT Assessment & Total Each Risk Factor Represents 3 Points: Age over 75 years, Medical PT with Hx of MD, CHF, Severe infection/sepsis Each Risk Factor is 1 Point: Obesity (BMI >25), Serious Lung disease (pnemonia < 1month, COPD, emphysema,etc) DVT Assessment Score: 8 - 5 or more Very High Risk Treatments: Early Ambulation *, Sequential Compression Device Pharmacological: Enoxaparin 40mg SQ Daily
[2018-02-27] MEDS ORDERED: IV SET AND CAP CHANGE INJ INJ SCH (01:30)
[2018-02-27] MEDS: KCL 40MEQ/NS 1,000 ML IVS PRN ×2 (02:01→17:41)
--- NOTE | 2018-02-27 07:15 | RAD ---
EXAM: XR Chest, 1 View CLINICAL HISTORY: The patient is 78 years old and is Female; Pneumonia TECHNIQUE: Frontal view of the chest. COMPARISON: Prior study from one day earlier, 02/26/2018 FINDINGS: LIMITATIONS: The patient is mildly rotated. LUNGS: Persistent and nodular opacity at the RIGHT base and in the RIGHT midlung adjacent to the RIGHT hilum are again noted. There is more confluent infiltrate in the RIGHT upper lobe and at the RIGHT apex, similar possibly slightly improved from one day earlier. PLEURAL SPACE: There is blunting of the costophrenic sulcus on the RIGHT, possibly from a small RIGHT pleural effusion. No pneumothorax. HEART: Unremarkable. No cardiomegaly. MEDIASTINUM: Unremarkable. BONES/JOINTS: Unremarkable .No acute fracture noted. VASCULATURE: The aortic knob is calcified. LYMPH NODES: Calcified lymph nodes in the RIGHT axilla are noted. TUBES, LINES AND DEVICES: There are electrocardiogram leads present. IMPRESSION: Persistent and nodular opacity at the RIGHT base and in the RIGHT midlung adjacent to the RIGHT hilum are again noted. There is more confluent infiltrate in the RIGHT upper lobe and at the RIGHT apex, similar possibly slightly improved from one day earlier. Electronically signed by: Gianluca Yusuf MD 02/27/2018 7:14 AM CDT
[2018-02-27] MEDS: IPRATROPIUM/ALBUTEROL 3 ML VIAL NEB SCH ×4 (08:47→20:30)
[2018-02-27] MEDS ORDERED: SODIUM CHL 0.9% 50ML MIN-BAG+ 50 ML IVPB ONE ×2 (09:11→19:26)
[2018-02-27] MEDS ORDERED: cefTRIAXone SODIUM 1 GM VIAL ONE ×2 (09:12→19:26)
[2018-02-27] MEDS: ENOXAPARIN SODIUM 40 MG/0.4 ML SYG SUBCU SCH (09:54)
[2018-02-27] MEDS: guaiFENesin ER TAB 600 MG TAB PO SCH ×2 (09:54→20:45)
[2018-02-27] MEDS: cefTRIAXone SODIUM 1 GM in SODIUM CHL 0.9% 50ML MIN-BAG+ 50 ML IVPB SCH ×2 (09:55→20:45)
[2018-02-27] MEDS ORDERED: SODIUM CHLORIDE 0.9% 250ML 250 ML ONE ×2 (19:26→21:04)
[2018-02-27] MEDS ORDERED: AZITHROMYCIN IV 500 MG VIAL IVPB ONE (19:27)
[2018-02-27] MEDS ORDERED: AZITHROMYCIN IV 500 MG in SODIUM CHLORIDE 0.9% 250ML 250 ML IVPB SCH (22:00)
--- NOTE | 2018-02-28 07:28 | RAD ---
EXAM DESCRIPTION: Chest,2 Views CLINICAL HISTORY: PNEUMONIA COMPARISON: February 27, 2018 FINDINGS: The cardiomediastinal silhouette is unremarkable. Bilateral interstitial and alveolar opacities are noted, worse on the right side. Findings are worse from yesterday's exam. Question tiny bilateral pleural effusions. The lung volumes are within normal range. There is no pneumothorax or acute fracture. IMPRESSION: Bilateral interstitial and alveolar opacities, worse on the right side and worse from yesterday's exam. Findings are consistent with history of pneumonia. Edema should also be considered. Possible tiny bilateral pleural effusions. Electronically signed by: Collin Frank MD 02/28/2018 7:26 AM CDT
[2018-02-28] MEDS ORDERED: cefTRIAXone SODIUM 1 GM VIAL ONE (07:46)
[2018-02-28] MEDS ORDERED: SODIUM CHL 0.9% 50ML MIN-BAG+ 50 ML IVPB ONE (07:46)
[2018-02-28] MEDS: IPRATROPIUM/ALBUTEROL 3 ML VIAL NEB SCH ×3 (08:33→16:35)
[2018-02-28] MEDS: KCL 40MEQ/NS 1,000 ML IVS PRN (08:34)
[2018-02-28] MEDS: guaiFENesin ER TAB 600 MG TAB PO SCH (08:35)
[2018-02-28] MEDS: ENOXAPARIN SODIUM 40 MG/0.4 ML SYG SUBCU SCH (08:35)
[2018-02-28] MEDS: cefTRIAXone SODIUM 1 GM in SODIUM CHL 0.9% 50ML MIN-BAG+ 50 ML IVPB SCH (08:36)
--- NOTE | 2018-02-28 13:44 | PN ---
SUPERVISING PHYSICIAN: Crow Loyd MD DATE: 02/28/18 SUBJECTIVE: The patient says she feels okay today. She is still having some shortness of breath and utilizing the oxygen. She states she worse oxygen about 10 years ago and has not needed it and states she does not have chronic obstructive pulmonary disease anymore. OBJECTIVE: VITAL SIGNS: Blood pressure 99/63. Heart rate 99. Respiratory rate 20. Temperature 97.7. Oxygen saturation 92% on 2 liters. GENERAL: Ms. Pinon is an 78-year-old female in some mild respiratory distress currently. NEUROLOGIC: Alert and oriented. LUNGS: Some scattered rhonchi, but no active wheezing, mildly labored respirations. CARDIOVASCULAR: Regular rate and rhythm. Normal S1, S2. ABDOMEN: Soft. Positive bowel sounds. EXTREMITIES: Lower extremities with no edema. Pulses 2+. Capillary refill is less than 2 seconds. LABORATORY: White count 13.3, hemoglobin 10.6, hematocrit 31.5, platelet count 324, left shift of 88.9 neutrophils. Chemistries show sodium 141, potassium 4.9 , chloride 109, CO2 28, BUN 11, creatinine 0.48, glucose 104, calcium 8.5. Chest x-ray compared with yesterday's shows worsened infiltrate on the right. ASSESSMENT: 1. Acute exacerbation of chronic obstructive pulmonary disease. 2. Community acquired pneumonia. 3. Frequent falls with generalized weakness. 4. Hypothyroidism. 5. Gastroesophageal reflux disease. 6. Electrolyte imbalance. 7. Elevated bilirubin. PLAN: At this point, we will continue the current antibiotics until review of CT. There is a bump in her white count, but there was an improvement yesterday. We will repeat labs tomorrow. I did order a CT scan of the chest. She has not smoked in a while, but smoked extensively at one point. I want to ensure that there is not an underlying mass versus an atypical pneumonia. Her chest X-ray does not look like a normal pneumonia. I will stop her IV fluids as her potassium is more than adequately corrected at this time. The azithromycin has been changed to p.o. from IV. We will continue IV ceftriaxone, monitoring cultures which have not yielded any results as of yet. #[id number] [facility]
[2018-02-28 14:43] VITALS: BP 122/72; TEMP 98.2
--- NOTE | 2018-02-28 14:46 | CT ---
EXAM DESCRIPTION: Chest w/o Contrast : Computed Tomography. CLINICAL HISTORY: pneumonia, rule out underlying mass COMPARISON: 2-view chest 02/28/2018. TECHNIQUE: Spiral-axial scans at 5.0 mm intervals through the lungs and thorax without IV contrast. 2.5 mm lung algorithm axial reconstructions. Coronal and sagittal 2.0 Mm reconstructions. No adverse reactions. Total Exam DLP: 340.95 mGy-cm. This exam was performed according to our departmental dose-optimization program which includes automated exposure control, adjustment of the mA and/or kV according to patient size and/or use of iterative reconstruction technique; to reduce radiation dose to as low as reasonably achievable (ALARA). FINDINGS: Consolidation with air bronchograms involving most of the right upper lobe, except for the anterior segment, extending to the apex posterior pleura and the major fissure. Also atelectasis in the right upper lobe with shift of the mediastinum and trachea to the right. Diffuse patchy infiltrate with air bronchograms and multiple foci involving most of the right lower lobe more centrally. More involvement of the posterior aspect of the superior segment in the anterior. Few densities in the right middle lobe. Thickening of the bilateral major fissures and the right horizontal fissure. Similar infiltrate and similar location in the left upper lobe has in the right upper lobe, not involving the anterior lung or the lingula. Peripheral patchy infiltrate with air bronchograms posterior left lower lobe abutting the posterior pleura minimal involvement of the posterior base. Bilateral small pleural effusions. Evaluation of the soft tissues mediastinum and hilum is limited due to lack of IV contrast. Large azygous node. Short axis diameter 1.6 cm (series 2, image 23).. Short axis pretracheal node to the right of midline 1.7 cm (series 2, image 18. Short axis subcarinal node 1.7 cm (image 27). Difficult to evaluate the perihilar nodes due to lack of IV contrast. No enlarged lymph nodes in the axilla by calcified nodes on the right. Thyroid gland not well seen in the neck base. There may be enlarged nodes to the right of the trachea at the thoracic inlet. Coronary artery calcifications and atherosclerotic calcifications in the aorta and proximal brachiocephalic vessels. No free air or fluid in the included subdiaphragmatic peritoneal space. Included adrenal glands and spleen are unremarkable. Atherosclerotic calcifications in the included aorta. IMPRESSION: 1. Bilateral multifocal infiltrates more likely to represent atypical bacterial pneumonia or fungal pneumonia or aspiration. Is the patient immunocompromised? This would be an unusual appearance for bronchioloalveolar carcinoma. Bilateral pleural effusions but no pneumothorax. Enlarged lymph nodes in the mediastinum which are difficult to evaluate due to lack of IV contrast. Consider sputum cultures for unusual organisms, also pulmonary medicine consult with possible transbronchial sampling and cultures. 2. Atherosclerotic changes in the thoracic aorta and coronary artery calcifications. Electronically signed by: Josr Blackwood MD 02/28/2018 2:45 PM CDT
[2018-02-28 17:05] VITALS: O2SAT 97
--- NOTE | 2018-02-28 20:15 | DS ---
SUPERVISING PHYSICIAN: Crow Loyd M.D. ADMISSION DIAGNOSIS: 1. Acute exacerbation of chronic obstructive pulmonary disease. 2. Community acquired pneumonia, multifocal. 3. Frequent falls with generalized weakness. 4. Hypothyroidism. 5. Gastroesophageal reflux disease. 6. Electrolyte imbalance. 7. Elevated bilirubin. DISCHARGE DIAGNOSIS: 1. Acute exacerbation of chronic obstructive pulmonary disease. 2. Community acquired pneumonia, multifocal. 3. Frequent falls with generalized weakness. 4. Hypothyroidism. 5. Gastroesophageal reflux disease. 6. Electrolyte imbalance. 7. Elevated bilirubin. HOSPITAL COURSE: This is an 78 year-old female who was admitted on the 2nd for pneumonia. She had actually came to the Emergency Room initially due to frequent falls where she had actually fallen backwards and had some lower back pain. She was noted to have a low-grade fever as well as hypoxia upon presentation to the E. R. She had a normal white count initially but she did have a left shift. She also had an elevated bilirubin of 2.3. She was admitted for community-acquired pneumonia and placed on treatment for chronic obstructive pulmonary disease exacerbation as well. I saw her this morning and reviewed her case. Her chest x-ray was actually a little bit worse and her white blood cell count went up to 13,000. She is still requiring oxygen for adequate O2 saturations. Given her abnormal view of the chest x-ray, I got a CT scan of the chest. CT scan of the chest showed atypical type infiltrates concerning for an atypical pneumonia and I felt at that point she would benefit from pulmonary consultation. PLAN: I spoke with Dr. Christopher from [facility] regarding pulmonary consultation and his view if she would need a pulmonary consultation and he agreed the patient needed to be transferred, probable bronchoscopy and a higher level of care at that point. Therefore I spoke with the transfer center at [facility] and the accepting physician was Dr. Ivey with [facility] program. They accepted the patient and therefore she will be transferred there and further care will be performed by them at this point. She is being transferred in stable condition with adequate blood pressure as well as O2 saturations were in the mid 90s. #[id number] [facility]
[2018-02-28] MEDS ORDERED: AZITHROMYCIN 250 MG TAB PO SCH (21:00)
[2018-02-28] MEDS ORDERED: SODIUM CHLORIDE 0.9% (FLUSH) 10 ML SYG IV SCH (21:00)
== END 2018-02-28 17:35 | disposition short-term general hospital (02) | DRG 194 ==
LOC: ER 20:38 → MS 02-27 00:53 → OBSVTOIN 02-27 00:53
PROVIDERS: ADMIT Nurse Practitioner Family; ATTEND Nurse Practitioner
DX: J18.9 Pneumonia, unspecified organism (principal); E87.1 Hypo-osmolality and hyponatremia; J44.1 Chronic obstructive pulmonary disease with (acute) exacerbation; J44.0 Chronic obstructive pulmonary disease with (acute) lower respiratory infection; E87.6 Hypokalemia; R09.02 Hypoxemia; R29.6 Repeated falls; R79.89 Other specified abnormal findings of blood chemistry; E86.0 Dehydration; R53.1 Weakness; G89.29 Other chronic pain; E03.9 Hypothyroidism, unspecified; K21.9 Gastro-esophageal reflux disease without esophagitis; Z88.0 Allergy status to penicillin; Z88.7 Allergy status to serum and vaccine; Z79.891 Long term (current) use of opiate analgesic; Z87.891 Personal history of nicotine dependence

== ENCOUNTER → 2018-04-25 | Outpatient (CLI) | payer OTHER | LOC: BFHH 12:26 | PROVIDERS: ATTEND Family Medicine | DX: D64.9 Anemia, unspecified (principal); I25.10 Atherosclerotic heart disease of native coronary artery without angina pectoris; E03.9 Hypothyroidism, unspecified; J44.9 Chronic obstructive pulmonary disease, unspecified ==

== ENCOUNTER → 2018-04-28 | Outpatient (CLI) | payer MEDICARE | LOC: GMAM 10:55 | PROVIDERS: ATTEND Family Medicine | DX: R06.02 Shortness of breath (principal) ==

== ENCOUNTER → 2018-05-03 | Outpatient (CLI) | payer MEDICARE ==
--- NOTE | 2018-05-03 14:46 | MRI ---
EXAM DESCRIPTION: Thoracic Spine w/o Contrast CLINICAL HISTORY: 78 years Female, THORACIC SPINE PAIN COMPARISON: CT chest dated 02/28/2018. TECHNIQUE: Multiplanar multiecho imaging of the thoracic spine was performed without gadolinium administration. FINDINGS: Acute compression fracture of T12 vertebral body is noted with approximately 50% loss of vertebral body height. 4 mm retropulsion of the fracture fragments is identified with resultant mild canal stenosis. However no evidence of impingement of the spinal cord. Remainder of the vertebral body heights are well-maintained. There is multilevel disc desiccation and loss of disc height. However no posterior disc bulge resulting in canal stenosis. No significant neural foraminal narrowing is noted throughout the thoracic spine. The thoracic spinal cord demonstrates no intrinsic signal abnormality. The visualized prevertebral and paravertebral soft tissues appear grossly unremarkable. IMPRESSION: Acute compression fracture of T12 vertebral body with approximately 50% loss of height and 4 mm retropulsion of the fracture fragments. However no evidence of impingement of the thoracic spinal cord. Electronically signed by: Zoila Benitez MD 05/03/2018 2:45 PM CDT
== END ==
LOC: MRI 08:35
PROVIDERS: ATTEND Family Medicine
DX: M51.14 Intervertebral disc disorders with radiculopathy, thoracic region (principal); M48.54XA Collapsed vertebra, not elsewhere classified, thoracic region, initial encounter for fracture

== ENCOUNTER → 2018-06-23 | Outpatient (CLI) | payer MEDICARE ==
--- NOTE | 2018-06-23 14:13 | RAD ---
EXAM DESCRIPTION: Thoracic Spine,AP Lateral CLINICAL HISTORY: WEDGE COMPRESSION FRACTURE T11-T12 COMPARISON: Thoracic spine MRI May 13, 2018 IMPRESSION: 2 views of the thoracic spine show diffuse osteopenia the osseous structures. Compression fracture deformity at T12 and is partly visualized secondary to overlapping densities. Vertebral body heights are otherwise maintained without other compression fracture deformity. Mild to moderate disc space narrowing throughout the mid to lower thoracic spine consistent with moderate disc degenerative changes are seen. There is mild dextrocurvature of the upper thoracic spine. Visualized lungs show diffuse peripheral chronic interstitial fibrotic changes with apical pleural thickening right greater than left. No obvious underlying bone destructive changes are seen. Electronically signed by: Yunior Carolina MD 06/23/2018 2:12 PM CDT
== END ==
LOC: RAD 08:05
PROVIDERS: ATTEND Orthopaedic Surgery
DX: S22.080D Wedge compression fracture of T11-T12 vertebra, subsequent encounter for fracture with routine healing (principal)

== ENCOUNTER → 2018-07-11 | Outpatient (CLI) | payer MEDICARE | LOC: BFHH 15:21 | PROVIDERS: ATTEND Family Medicine | DX: D51.9 Vitamin B12 deficiency anemia, unspecified (principal); E55.9 Vitamin D deficiency, unspecified; M85.89 Other specified disorders of bone density and structure, multiple sites; D64.9 Anemia, unspecified ==

== ENCOUNTER → 2018-08-04 | Outpatient (CLI) | payer MEDICARE ==
--- NOTE | 2018-08-04 11:39 | RAD ---
Study: Two views of the thoracic spine. Indication: COMP FX Comparison: None. Impression: Age-indeterminate T12 compression fracture redemonstrated. This appears similar to the prior exam but is difficult to evaluate due to the diaphragm. No definite new fracture. Mild to moderate disc space narrowing throughout the thoracic spine. Osteopenia. If this is a new finding, DEXA scan recommended as well as evaluation for possible osteoporosis treatment. Fibrotic changes throughout the lungs redemonstrated. Electronically signed by: Elías Geronimo MD 08/04/2018 11:38 AM [facility]
== END ==
LOC: RAD 08:05
PROVIDERS: ATTEND Orthopaedic Surgery
DX: S22.080D Wedge compression fracture of T11-T12 vertebra, subsequent encounter for fracture with routine healing (principal)

== ENCOUNTER → 2018-08-16 | Outpatient (CLI) | payer MEDICARE ==
--- NOTE | 2018-08-16 13:38 | US ---
EXAM DESCRIPTION: Bladder: ULTRASOUND. CLINICAL HISTORY: URINARY RETENTION COMPARISON: None Available. TECHNIQUE: Transcutaneous scanning: Lujan-scale and Doppler modes. FINDINGS: Prior to voiding, the urinary bladder measurements were 8.7 x 8.5 x 6.5 cm for an estimated volume of 256.45 mL. After voiding, dimensions were 3 3.4 x 5.4 x 5.4 with estimated volume of 54.8 mL. No Doppler ureteral jets were seen bilaterally. IMPRESSION: Micturition volume approximately 211 mm. Patient able to void approximately 80% of prevoid volume with a residual of almost 55 mL. Electronically signed by: Josr Blackwood MD 08/16/2018 1:37 PM [employer]
== END ==
LOC: US 08:19
PROVIDERS: ATTEND Family Medicine
DX: R33.8 Other retention of urine (principal)

== ENCOUNTER 2018-08-29 05:49 | Day surgery (SDC) | payer MEDICARE ==
[2018-08-29] MEDS ORDERED: TROP 1%/CYCLOPEN 1%/PHENYL 2% DROPS ONE (10:47)
[2018-08-29] MEDS ORDERED: PROPARACAINE 0.5% OPHTH SOL 15 ML BTTL ONE (10:47)
[2018-08-29] MEDS ORDERED: MIDAZOLAM INJ 2 MG/2 ML VIAL ONE (12:35)
[2018-08-29] MEDS ORDERED: PROPARACAINE 0.5% OPHTH SOL 15 ML BTTL RIGHT_EYE ONE (12:45)
[2018-08-29] MEDS ORDERED: LIDOCAINE 1% 2 ML VIAL INJ ONE (12:57)
[2018-08-29] MEDS ORDERED: BRIMONIDINE 0.2% OPHTH DROPS RIGHT_EYE ONE ×2 (12:57→13:13)
[2018-08-29] MEDS ORDERED: DEXAMETHASONE 0.1% OPHTH SOL 1 DROP RIGHT_EYE ONE ×2 (12:57→13:13)
[2018-08-29] MEDS ORDERED: TOBRAMYCIN SULF 0.3 % OPHT SOL 1 DROP RIGHT_EYE ONE ×2 (12:57→13:13)
== END 2018-08-29 13:47 | disposition home or self-care (01) ==
LOC: AMB 05:49
PROVIDERS: ATTEND Ophthalmology
DX: H25.11 Age-related nuclear cataract, right eye (principal); K21.9 Gastro-esophageal reflux disease without esophagitis; J44.9 Chronic obstructive pulmonary disease, unspecified; Z87.891 Personal history of nicotine dependence; Z88.0 Allergy status to penicillin; Z79.899 Other long term (current) drug therapy
CPT/HCPCS: 00142; 66984; 85810; J2250

== ENCOUNTER 2018-10-10 05:23 | Day surgery (SDC) | payer MEDICARE, OTHER ==
[2018-10-10] MEDS ORDERED: TROP 1%/CYCLOPEN 1%/PHENYL 2% DROPS ONE (13:23)
[2018-10-10] MEDS ORDERED: PROPARACAINE 0.5% OPHTH SOL 15 ML BTTL ONE (13:23)
[2018-10-10] MEDS ORDERED: MIDAZOLAM INJ 2 MG/2 ML VIAL ONE (14:23)
[2018-10-10] MEDS ORDERED: TOBRAMYCIN SULF 0.3 % OPHT SOL 1 DROP LEFT_EYE ONE ×2 (14:42→15:05)
[2018-10-10] MEDS ORDERED: DEXAMETHASONE 0.1% OPHTH SOL 1 DROP LEFT_EYE ONE ×2 (14:42→15:05)
[2018-10-10] MEDS ORDERED: LIDOCAINE 1% MPF 5 ML VIAL INJ ONE (14:42)
[2018-10-10] MEDS ORDERED: BRIMONIDINE 0.2% OPHTH DROPS LEFT_EYE ONE ×2 (14:42→15:05)
== END 2018-10-10 15:50 | disposition home or self-care (01) ==
LOC: AMB 05:23
PROVIDERS: ATTEND Ophthalmology
DX: H25.12 Age-related nuclear cataract, left eye (principal); I10 Essential (primary) hypertension; J44.9 Chronic obstructive pulmonary disease, unspecified; Z88.0 Allergy status to penicillin; Z87.891 Personal history of nicotine dependence; Z79.899 Other long term (current) drug therapy
CPT/HCPCS: 00142; 66984; J2250

== ENCOUNTER → 2018-10-24 | Outpatient (CLI) | payer MEDICARE, OTHER | LOC: GMAM 15:05 | PROVIDERS: ATTEND Family Medicine | DX: R51 Headache (principal) ==

== ENCOUNTER → 2018-11-10 | Outpatient (CLI) | payer OTHER ==
--- NOTE | 2018-11-10 14:18 | MRI ---
EXAM DESCRIPTION: Brain w/wo Contrast CLINICAL HISTORY: HEADACHE COMPARISON: None available TECHNIQUE: MRI of the brain is performed according to our usual protocol including multiplanar multi sequence technique. Post gadolinium imaging is performed following IV administration of routine adult dose of gadolinium contrast. FINDINGS: Sagittal T1 images show intact corpus callosum. Normal pituitary gland with normal T1 appearance of the talia and medulla and upper cervical cord. Normal signal intensity within the clivus and calvarium. Axial T2 fat sat images reveal preservation of intracranial vascular flow voids. Normal roldan matter T2 signal intensity. Positive white matter hyperintensity. Normal ventricles with normal gyral and sulcal fold pattern. The globes appear intact and symmetrical. No abnormal fluid signal in the paranasal sinuses, tympanic cavities or mastoid air cells. Axial flair images show multifocal and confluent areas of increased signal intensity within the cerebral white matter consistent with chronic microvascular ischemic changes. Findings are not unexpected for age. Diffusion weighted images are negative for focal intense increased signal intensity in the brain parenchyma to suggest restricted diffusion. ADC mapping is negative. Axial T1 precontrast images show normal roldan-white matter differentiation. No high signal intensity hemorrhagic lesion of the brain parenchyma. No subdural hematoma. Axial susceptibility weighted images are negative for focal signal loss to suggest abnormal brain parenchymal calcification or hemosiderin deposition. After IV contrast, axial T1 images show normal enhancement of intracranial vessels. No enhancing intracranial mass or abnormal parenchymal enhancement to suggest disruption of the blood brain barrier. Coronal T1 postcontrast images show normal dural sinus enhancement with normal enhancement of the pituitary gland. IMPRESSION: Chronic microvascular ischemic changes in the cerebral hemispheres. No acute intracranial pathologic process. Clear paranasal sinuses. Electronically signed by: Zac Overton MD 11/10/2018 2:16 PM [facility]
== END ==
LOC: MRI 12:35
PROVIDERS: ATTEND Family Medicine
DX: R51 Headache (principal)

== ENCOUNTER → 2018-11-15 | Outpatient (CLI) | payer OTHER | LOC: GMAM 14:46 | PROVIDERS: ATTEND Family Medicine | DX: E03.9 Hypothyroidism, unspecified (principal) ==

== ENCOUNTER → 2018-12-13 | Outpatient (CLI) | payer OTHER | LOC: GMAM 14:55 | PROVIDERS: ATTEND Family Medicine | DX: Z91.018 Allergy to other foods (principal) ==

== ENCOUNTER → 2019-03-03 | Outpatient (CLI) | payer OTHER ==
--- NOTE | 2019-03-03 14:39 | MRI ---
MRI left shoulder without contrast INDICATION: Shoulder pain rotator cuff syndrome symptom onset not specified TECHNIQUE: Noncontrast MR imaging left shoulder standard protocol FINDINGS: Tendinopathy subscapularis without rupture or retraction. There is a bifid appearance of the bicep which may relate to thickening of the bicep tendon sheath. Using os acromiale. Mild AC joint osteoarthrosis. Extensive tendinopathy supraspinatus and infraspinatus tendons. Diffuse fairly high-grade partial tears undersurface and interstitial distal supraspinatus and infraspinatus structurally significant without retraction. Cystic change/resorption greater tuberosity multifocal. Generalized grade 1-2 fatty marbling of the rotator cuff muscle bellies IMPRESSION: Chronic tendinopathy and fairly high-grade partial tears supraspinatus and infraspinatus tendons without retraction Os acromiale with mild AC joint arthrosis Mild subacromial and subdeltoid bursitis Electronically signed by: Tera Astorga MD 03/03/2019 2:36 PM CDT
--- NOTE | 2019-03-03 14:47 | MRI ---
MRI right shoulder without contrast INDICATION: Shoulder pain rotator cuff syndrome TECHNIQUE: Noncontrast MR imaging right shoulder FINDINGS: There is pleural thickening/atelectasis along the lateral right lung. Previous consolidation on CT in this area recommend follow-up chest x-ray. Mild tendinopathy and low-grade chronic partial tear subscapularis tendon. No bicep rupture or dislocation. Mild AC joint osteoarthrosis. Interstitial tendinosis and thinning indicating chronic partial tear infraspinatus. Supraspinatus shows mild tendinopathy. There is cystic change in the humerus near the bicipital groove anteriorly. Mild degenerative change of the labrum especially posterior superior labrum. There is grade 1-2 fatty marbling throughout the rotator cuff muscle bellies. There is type III acromion. There is a remote healed fracture humeral neck with mild edema. There is an interstitial partial tear involving the distal supraspinatus and the sagittal images slightly greater than 50% partial-thickness posteriorly near the junction with the infraspinatus. Reference sagittal series 701 images 13 and 14. IMPRESSION: Pleural thickening/scarring right lung recommend chest x-ray likely sequela of previous inflammatory process on CT chest 2018 Rotator cuff partial tears primarily supraspinatus infraspinatus junction slightly greater than 50% partial-thickness without retraction Remote healed fracture right humeral neck Mild AC joint osteoarthrosis Mild degenerative labral changes Tendinopathy subscapularis without complete rupture or retraction Electronically signed by: Tera Astorga MD 03/03/2019 2:45 PM CDT
== END ==
LOC: MRI 10:45
PROVIDERS: ATTEND Orthopaedic Surgery
DX: M75.102 Unspecified rotator cuff tear or rupture of left shoulder, not specified as traumatic (principal); M75.101 Unspecified rotator cuff tear or rupture of right shoulder, not specified as traumatic; M19.012 Primary osteoarthritis, left shoulder; M19.011 Primary osteoarthritis, right shoulder; M75.32 Calcific tendinitis of left shoulder; M75.31 Calcific tendinitis of right shoulder; J92.9 Pleural plaque without asbestos; M75.52 Bursitis of left shoulder

== ENCOUNTER → 2019-08-14 | Outpatient (CLI) | payer OTHER | LOC: GMAJS 10:59 | PROVIDERS: ATTEND Physician Assistant | DX: J20.9 Acute bronchitis, unspecified (principal) ==

== ENCOUNTER 2020-04-26 09:22 | Emergency (ER) | payer OTHER ==
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
[2020-04-26 10:04] VITALS: O2SAT 97
--- NOTE | 2020-04-26 10:16 | RAD ---
EXAM DESCRIPTION: Chest,2 Views CLINICAL HISTORY: 80 years Female, cough, shortness of breath COMPARISON: 28 February 2018 TECHNIQUE: PA/lateral FINDINGS: Improving right upper lobe infiltrate is observed. There is also mild left apical infiltrate is well. The heart is within range of normal. A background of chronic interstitial lung disease is observed. No pleural fluid is seen. IMPRESSION: Improving bilateral infiltrates are detected. Electronically signed by: Franklyn Mckenzie MD 04/26/2020 10:14 AM CDT
[2020-04-26 10:37] VITALS: BP 132/69; TEMP 98.6
== END 2020-04-26 10:36 | disposition home or self-care (01) ==
LOC: ER 09:22
DX: J44.0 Chronic obstructive pulmonary disease with (acute) lower respiratory infection (principal); J20.9 Acute bronchitis, unspecified; I48.91 Unspecified atrial fibrillation; E03.9 Hypothyroidism, unspecified; K21.9 Gastro-esophageal reflux disease without esophagitis; Z87.891 Personal history of nicotine dependence

== ENCOUNTER → 2020-04-30 | Outpatient (CLI) | payer MEDICARE | LOC: GMAM 14:42 | PROVIDERS: ATTEND Family Medicine | DX: E03.9 Hypothyroidism, unspecified (principal); J18.9 Pneumonia, unspecified organism; Z79.899 Other long term (current) drug therapy ==

== ENCOUNTER → 2020-07-30 | Outpatient (CLI) | payer MEDICARE | LOC: GMAM 14:28 | PROVIDERS: ATTEND Family Medicine | DX: N95.1 Menopausal and female climacteric states (principal) ==

== ENCOUNTER → 2020-08-16 | Outpatient (CLI) | payer MEDICARE ==
--- NOTE | 2020-08-16 16:51 | CT ---
EXAM DESCRIPTION: Abdomen/Pelvis w/Contrast CLINICAL HISTORY: 80 years Female, UNSPECIFIED ABD PAIN TECHNIQUE: This exam was performed according to our departmental dose-optimization program, which includes automated exposure control, adjustment of the mA and/or kV according to patient size and/or use of iterative reconstruction technique. COMPARISON: April 26, 2020 FINDINGS: Bibasilar volume loss. No focal consolidation or suspicious pulmonary nodule. The liver is unremarkable. No suspicious hepatic lesion. No biliary dilatation. The gallbladder is unremarkable. The portal vein is patent. The spleen and adrenal glands are unremarkable. Pancreatic body cystic lesion measuring 7 mm which is most likely a dilated side branch or side branch IPMN. Bilateral renal cysts. Symmetric renal parenchymal enhancement. No hydronephrosis. No urolithiasis. Unremarkable bladder. No evidence of bowel obstruction or focal inflammatory change. No findings to suggest appendicitis. No adenopathy. No focal fluid collection. No free air. Normal caliber abdominal aorta. Mild atherosclerotic disease. Redemonstrated T12 superior endplate compression fracture with near-total height loss anteriorly. There is 6 mm of associated retropulsed bone. IMPRESSION: No evidence of acute process in the abdomen or pelvis. Electronically signed by: Natanael Medel MD 08/16/2020 4:50 PM [employer]
== END ==
LOC: CT 09:19
PROVIDERS: ATTEND Family Medicine
DX: Z01.812 Encounter for preprocedural laboratory examination (principal); R10.9 Unspecified abdominal pain